=== PATIENT | male | born 1950 | race Caucasian/White ===

== ENCOUNTER 2017-03-17 20:58 | Emergency (ER) | payer MEDICARE ==
[2017-03-17] MEDS ORDERED: HYDROmorphone 0.5 MG/0.5 ML Syringe IVPUSH ONE (21:45)
[2017-03-17] MEDS ORDERED: Lactated Ringers 1,000 ML IV SCH (21:45)
[2017-03-17] MEDS ORDERED: Ondansetron 4 MG/2 ML SDV IVPUSH ONE (21:45)
--- NOTE | 2017-03-17 21:48 | EDM.PDOC ---
ED HPI GENERAL MEDICAL PROBLEM - General Chief Complaint: Abdominal Pain Stated Complaint: ABD PAIN Time Seen by Provider: 03/17/17 21:33 Source of Information: Reports: Patient, RN Notes Reviewed History Limitations: Reports: No Limitations - History of Present Illness INITIAL COMMENTS - FREE TEXT/NARRATIVE: 66-year-old gentleman presents emergency department a complaint of abdominal pain,, he states the pain started today he has never had anything like this before no history of surgeries no past medical history denies any flatulence has not had a bowel movement in 2 days no other symptomology suprapubic Pain Score (Numeric/FACES): 10 - Related Data Allergies Allergy/AdvReac Type Severity Reaction Status Date / Time No Known Allergies Allergy Verified 03/17/17 21:19 Home Meds: Home Meds Aspirin [Elda Chewable] 81 mg PO DAILY 03/17/17 [History] Multivitamin [Multi-Day Vitamins] 1 tab PO DAILY 03/17/17 [History] [place]-3 Fatty Acids [Fish Oil] 300 mg PO DAILY 03/17/17 [History] Past Medical History HEENT History: Reports: Impaired Vision Musculoskeletal History: Reports: Back Pain, Chronic - Past Surgical History Musculoskeletal Surgical History: Reports: Arthroscopic Knee, Other (See Below) Other Musculoskeletal Surgeries/Procedures:: bilateral knees Social & Family History - Tobacco Use Smoking Status *Q: Current Every Day Smoker Years of Tobacco use: 40 Packs/Tins Daily: 0.5 - Caffeine Use Caffeine Use: Reports: None - Recreational Drug Use Recreational Drug Use: No ED ROS GENERAL - Review of Systems Review Of Systems: See Below Constitutional: Reports: No Symptoms HEENT: Reports: No Symptoms Respiratory: Reports: No Symptoms Cardiovascular: Reports: No Symptoms GI/Abdominal: Reports: Abdominal Pain, Constipation, Nausea, Vomiting. Denies: Flatus Musculoskeletal: Reports: No Symptoms Skin: Reports: No Symptoms Neurological: Reports: No Symptoms ED EXAM, GI/ABD - Physical Exam Exam: See Below Exam Limited By: No Limitations General Appearance: Alert, Mild Distress Respiratory/Chest: No Respiratory Distress, Lungs Clear, Normal Breath Sounds, No Accessory Muscle Use Cardiovascular: Regular Rate, Rhythm, No Murmur GI/Abdominal: Soft, Absent Bowel Sounds, Tenderness (suprapubic), Guarding. No : Distention, Rebound, McBurney's Sign, Psoas Sign, Obturator Sign, Rovsing's Sign Extremities: Normal Inspection, No Pedal Edema Course - Vital Signs Last Recorded V/S: Last Vital Signs Temp 99.7 F 03/17/17 23:16 Pulse 86 03/17/17 23:24 Resp 20 03/17/17 23:24 BP 170/96 H 03/17/17 23:24 Pulse Ox 91 L 03/17/17 23:24 - Orders/Labs/Meds Orders: Active Orders 24 hr Category Date Time Status EKG Documentation Completion [RC] ASDIRECTED Care 03/17/17 23:05 Ordered Peripheral IV Care [RC] . DIRECTED Care 03/17/17 21:42 Active Abdomen Pelvis w Cont [CT] Urgent Exams 03/17/17 21:42 Taken Lactated Ringers [Ringers, Lactated] 1,000 ml Med 03/17/17 21:45 Active IV ASDIRECTED Nitroglycerin 25 MG in D5W @ 10 MCG/MIN(250ml) Premix Med 03/17/17 23:00 Ordered Nitroglycerin/D5W [Nitroglycerin 25 MG/D5W 250 ML] 25 mg in 250 ml IV TITRATE Sodium Chloride 0.9% [Saline Flush] Med 03/17/17 21:42 Active 10 ml FLUSH ASDIRECTED PRN Peripheral IV Insertion Adult [OM.PC] Urgent Oth 03/17/17 21:42 Ordered EKG 12 Lead [EK] Stat Ther 03/17/17 23:04 Ordered Medication Orders Lactated Ringer's (Ringers, Lactated) 1,000 mls @ 500 mls/hr IV ASDIRECTED LINDA Last Admin: 03/17/17 22:50 Dose: 500 mls/hr Nitroglycerin/Dextrose (Nitroglycerin 25 Mg/D5w 250 Ml) 25 mg in 250 mls @ 6 mls/hr IV TITRATE LINDA; 10 MCG/MIN PRN Reason: Protocol Last Admin: 03/17/17 23:08 Dose: 10 mcg/min, 6 mls/hr Sodium Chloride (Saline Flush) 10 ml FLUSH ASDIRECTED PRN PRN Reason: Keep Vein Open Last Admin: 03/17/17 22:07 Dose: 10 ml Admin: 03/17/17 21:55 Dose: 10 ml Labs: Laboratory Tests 06/01/17 06/01/17 06/01/17 Range/Units 21:42 21:42 21:42 WBC 11.6 H (4.5-11.0) K/uL RBC 4.95 (4.30-5.90) M/uL Hgb 15.2 H (12.0-15.0) g/dL Hct 43.9 (40.0-54.0) % MCV 89 (80-98) fL MCH 31 (27-31) pg MCHC 35 (32-36) % Plt Count 196 (150-400) K/uL Neut % (Auto) 85 H (36-66) % Lymph % (Auto) 10 L (24-44) % [place] % (Auto) 4 (2-6) % Eos % (Auto) 0 L (2-4) % Baso % (Auto) 0 (0-1) % Sodium 141 (140-148) mmol/L Potassium 4.2 (3.6-5.2) mmol/L Chloride 106 (100-108) mmol/L Carbon Dioxide 25 (21-32) mmol/L Anion Gap 10.4 (5.0-14.0) mmol/L BUN 26 H (7-18) mg/dL Creatinine 1.4 H (0.8-1.3) mg/dL Est Cr Clr Drug Dosing 56.79 mL/min Estimated GFR (MDRD) 50 L (>60) Glucose 137 H (74-106) mg/dL Lactic Acid 1.4 (0.4-2.0) mmol/L Calcium 9.5 (8.5-10.1) mg/dL Total Bilirubin 0.7 (0.2-1.0) mg/dL AST 22 (15-37) U/L ALT 30 (12-78) U/L Alkaline Phosphatase 98 (46-116) U/L Total Protein 7.5 (6.4-8.2) g/dL Albumin 4.0 (3.4-5.0) g/dL Globulin 3.5 (2.3-3.5) g/dL Albumin/Globulin Ratio 1.1 L (1.2-2.2) Lipase 71 L (73-393) U/L Urine Color Urine Appearance Urine pH (4.5-8.0) Ur Specific [place] (1.008-1.030) Urine Protein (NEGATIVE) mg/dL Urine Glucose (UA) (NEGATIVE) mg/dL Urine Ketones (NEGATIVE) mg/dL Urine Occult Blood (NEGATIVE) Urine Nitrite (NEGAITVE) Urine Bilirubin (NEGATIVE) Urine Urobilinogen (NORMAL) mg/dL Ur Leukocyte Esterase (NEGATIVE) Urine RBC (0-5) Urine WBC (0-5) Ur Epithelial Cells Amorphous Sediment Urine Bacteria Urine Mucus 03/17/17 Range/Units 22:51 WBC (4.5-11.0) K/uL RBC (4.30-5.90) M/uL Hgb (12.0-15.0) g/dL Hct (40.0-54.0) % MCV (80-98) fL MCH (27-31) pg MCHC (32-36) % Plt Count (150-400) K/uL Neut % (Auto) (36-66) % Lymph % (Auto) (24-44) % Sam[place] % (Auto) (2-6) % Eos % (Auto) (2-4) % Baso % (Auto) (0-1) % Sodium (140-148) mmol/L Potassium (3.6-5.2) mmol/L Chloride (100-108) mmol/L Carbon Dioxide (21-32) mmol/L Anion Gap (5.0-14.0) mmol/L BUN (7-18) mg/dL Creatinine (0.8-1.3) mg/dL Est Cr Clr Drug Dosing mL/min Estimated GFR (MDRD) (>60) Glucose (74-106) mg/dL Lactic Acid (0.4-2.0) mmol/L Calcium (8.5-10.1) mg/dL Total Bilirubin (0.2-1.0) mg/dL AST (15-37) U/L ALT (12-78) U/L Alkaline Phosphatase (46-116) U/L Total Protein (6.4-8.2) g/dL Albumin (3.4-5.0) g/dL Globulin (2.3-3.5) g/dL Albumin/Globulin Ratio (1.2-2.2) Lipase (73-393) U/L Urine Color Yellow Urine Appearance Clear Urine pH 5.0 (4.5-8.0) Ur Specific [place] 1.015 (1.008-1.030) Urine Protein Negative (NEGATIVE) mg/dL Urine Glucose (UA) Normal (NEGATIVE) mg/dL Urine Ketones 50 H (NEGATIVE) mg/dL Urine Occult Blood Moderate (NEGATIVE) Urine Nitrite Negative (NEGAITVE) Urine Bilirubin Negative (NEGATIVE) Urine Urobilinogen Normal (NORMAL) mg/dL Ur Leukocyte Esterase Small (NEGATIVE) Urine RBC 0-5 (0-5) Urine WBC 0-5 (0-5) Ur Epithelial Cells Not seen Amorphous Sediment Rare Urine Bacteria Not seen Urine Mucus Not seen Meds: Medications Generic Name Dose Route Start Last Admin Trade Name Freq PRN Reason Stop Dose Admin Lactated Ringer's 1,000 mls @ 500 mls/hr 03/17/17 21:45 03/17/17 22:50 Ringers, Lactated IV 500 mls/hr ASDIRECTED LINDA Administration Nitroglycerin/Dextrose 25 mg in 250 mls @ 6 mls/hr 03/17/17 23:00 03/17/17 23 :08 Nitroglycerin 25 Mg/D5w 250 Ml IV 10 mcg/min TITRATE LINDA 6 mls/hr Protocol Administration 10 MCG/MIN Sodium Chloride 10 ml 03/17/17 21:42 03/17/17 22:07 Saline Flush FLUSH 10 ml ASDIRECTED PRN Administration Keep Vein Open Discontinued Medications Generic Name Dose Route Start Last Admin Trade Name Freq PRN Reason Stop Dose Admin Hydromorphone HCl 0.5 mg 03/17/17 21:45 03/17/17 22:00 Dilaudid IVPUSH 03/17/17 21:46 0.5 mg ONETIME ONE Administration Hydromorphone HCl 1 mg 03/17/17 23:15 03/17/17 23:20 Dilaudid IVPUSH 03/17/17 23:16 1 mg ONETIME ONE Administration Sodium Chloride 76 mls @ 3.6 mls/sec 03/17/17 22:26 03/17/17 22:28 Normal Saline IV 03/17/17 22:27 3.6 mls/sec ASDIRECTED STA Administration Nitroglycerin/Dextrose Confirm 03/17/17 23:03 Nitroglycerin 25 Mg/D5w 250 Ml Administered 03/17/17 23:04 Dose 25 mg in 250 mls @ as directed .ROUTE .STK-MED ONE Iopamidol 118 ml 03/17/17 22:25 03/17/17 22:27 Isovue-300 (61%) IV 03/17/17 22:26 150 ml . DIRECTED STA Administration Ondansetron HCl 4 mg 03/17/17 21:45 03/17/17 22:00 Zofran IVPUSH 03/17/17 21:46 4 mg ONETIME ONE Administration Departure - Departure Time of Disposition: 23:28 Disposition: DC/Tfer to Acute Hospital 02 Condition: fair Clinical Impression: AAA (abdominal aortic aneurysm) without rupture - Discharge Information Forms: ED Department Discharge - My Orders Last 24 Hours: My Active Orders 03/17/17 21:42 Peripheral IV Care [RC] . DIRECTED Abdomen Pelvis w Cont [CT] Urgent Sodium Chloride 0.9% [Saline Flush] 10 ml FLUSH ASDIRECTED PRN Peripheral IV Insertion Adult [OM.PC] Urgent 03/17/17 21:45 Lactated Ringers [Ringers, Lactated] 1,000 ml IV ASDIRECTED 03/17/17 23:00 Nitroglycerin 25 MG in D5W @ 10 MCG/MIN(250ml) Premix Nitroglycerin/D5W [ Nitroglycerin 25 MG/D5W 250 ML] 25 mg in 250 ml IV TITRATE 03/17/17 23:04 EKG 12 Lead [EK] Stat 03/17/17 23:05 EKG Documentation Completion [RC] ASDIRECTED - Assessment/Plan Last 24 Hours: My Active Orders 03/17/17 21:42 Peripheral IV Care [RC] . DIRECTED Abdomen Pelvis w Cont [CT] Urgent Sodium Chloride 0.9% [Saline Flush] 10 ml FLUSH ASDIRECTED PRN Peripheral IV Insertion Adult [OM.PC] Urgent 03/17/17 21:45 Lactated Ringers [Ringers, Lactated] 1,000 ml IV ASDIRECTED 03/17/17 23:00 Nitroglycerin 25 MG in D5W @ 10 MCG/MIN(250ml) Premix Nitroglycerin/D5W [ Nitroglycerin 25 MG/D5W 250 ML] 25 mg in 250 ml IV TITRATE 03/17/17 23:04 EKG 12 Lead [EK] Stat 03/17/17 23:05 EKG Documentation Completion [RC] ASDIRECTED Plan: Assessment Acuity = acute Site and laterality = abdominal aortic aneurysm with concern for possible developing rupture Etiology = unclear etiology Manifestations = pain, hypertensive urgency Location of injury = home Lab values = WBC mildly elevated 11.6 consistent leukocytosis creatinine elevated 1.4 consistent acute renal failure stage GIII a, CT scan shows an infrarenal AAA measuring 5.4 cm in maximum length and 9.4 cm adjacent fat stranding concerning for possible developing rupture no acute rupture at this time Plan discussed case with Dr. Curtis hospitalist on-call [facility] and Dr. Becker vascular surgeon who did review the films initially felt this patient could be transferred by ground however his pain started to increase and because the concern of increasing pain and poor blood pressure control with his hypertensive urgency despite a nitro drip felt the safest transportation for this patient would be by air, therefore he was transported via [facility] Patient was in agreement with the plan all questions were answered. This note was dictated using [employer] voice recognition software please call with any questions.
[2017-03-17] MEDS: Sodium Chloride 0.9% 10 ML Syringe FLUSH PRN ×2 (21:55→22:07)
[2017-03-17] MEDS ORDERED: Iopamidol 612 MG/ML 150 ML Bottle IV STA (22:25)
[2017-03-17] MEDS ORDERED: Nitroglycerin/D5W 25 MG/250 ML BOTTLE IV SCH (23:00)
[2017-03-17] MEDS ORDERED: Nitroglycerin/D5W 25 MG/250 ML BOTTLE ONE (23:03)
[2017-03-17] MEDS ORDERED: HYDROmorphone 1 MG/ML Syringe IVPUSH ONE (23:15)
[2017-03-17 23:24] VITALS: BP 170/96
== END 2017-03-17 23:33 ==
LOC: JP.ED 20:58
DX: I71.4 Abdominal aortic aneurysm, without rupture (principal); F17.210 Nicotine dependence, cigarettes, uncomplicated; G89.29 Other chronic pain; M54.9 Dorsalgia, unspecified; Z79.899 Other long term (current) drug therapy; Z79.82 Long term (current) use of aspirin
CPT/HCPCS: 36415; 74177; 80053; 81001; 83605; 83690; 85025; 93005; 96361; 96374; 96375; 99285; J1170; J2405; J7030; J7050; J7120; 93010; 99284